=== PATIENT | female | born 1960 | race Caucasian/White ===

== ENCOUNTER 2018-04-24 06:12 | Observation (INO) | payer OTHER ==
--- NOTE | 2018-04-24 07:26 | PDOC ---
History of Present Illness - General Chief Complaint: Vaginal Sxs Stated Complaint: VAGINAL PROBLEM/RASH Time Seen by Provider: 04/24/18 07:24 History Source: Patient, Old Records Exam Limitations: No Limitations - History of Present Illness Initial Comments: HPI: 57 y/o female presenting to [facility] ER complaining of painful rash to groin. First noted the rash on Thursday and reports that it was progressively worsening by spreading further from the midline. Possible associated singular lesion on upper left quadrant of abdomen but pt admits she is unable to recall if the lesion appeared at the same time. Denies weeping or purulent discharge. Denies urinary symptoms. Pt was evaluated by OBGYN Dr. Bolivar yesterday. Blood was drawn but has not resulted. Doctor admitted she was unsure of the etiology of the lesion. Pt presents here today for further evaluation. Denies fevers, chills , or recent illness. No history of similar. Denies new detergent, soap, or clothing. No other member of household has similar lesions. PCP: Dr. Ramirez Choudhary Hx: - Pt reports she is not sexually active. Medical Hx: - HLD, managed with statin. Surgical Hx: - Pt denies Past History - Past Medical History Allergies/Adverse Reactions: Allergies Allergy/AdvReac Type Severity Reaction Status Date / Time vancomycin Allergy Intermediate Itching Verified 04/24/18 10:42 Home Medications: Ambulatory Orders Unobtainable 04/24/18 COPD: No - Reproductive History Is Patient Now?: No Therapeutic (s) & number: No - Immunization History Immunization Up to Date: Yes - Suicide/Smoking/Psychosocial Hx Smoking History: Never smoked Have you smoked in the past 12 months: No Information on smoking cessation initiated: No Hx Alcohol Use: No Drug/Substance Use Hx: No Review of Systems - Review of Systems Able to Perform ROS?: Yes Comments:: In addition to that documented in the HPI above, the additional ROS was obtained : Constitutional: Denies fevers or chills Eyes: Denies vision changes ENMT: Denies sore throat CV: Denies chest pain Resp: Denies SOB GI: Denies vomiting or diarrhea : Denies painful urination MSK: Denies recent trauma Skin: Per HPI Neuro: Denies new numbness or tingling or weakness Endocrine: Denies polyuria Heme: Denies bleeding or bruising *Physical Exam - Vital Signs Last Vital Signs Temp Pulse Resp BP Pulse Ox 98.6 F 88 20 141/90 99 04/24/18 06:20 04/24/18 06:20 04/24/18 06:20 04/24/18 06:20 04/24/18 06:20 - Physical Exam Comments: Constitutional: Well-developed, well-nourished female in no acute distress or obvious discomfort. Found sitting upright on PUBLICITY DIRECTOR table. Alert and oriented x4. Answered all questions appropriately and completely. Speech was non-labored, non -pressured. Head: Normocephalic. No obvious external signs of trauma. Eyes: Sclerae white. Conjunctiva moist and not injected. EARS: Hearing grossly intact. NOSE: No nasal discharge. Neck: Supple, trachea is midline. Cardiovascular: Regular rate and regular rhythm. No murmur, rubs, clicks, or gallops. Peripheral pulses: Radial pulses full. Respiratory: Breathing unlabored. Equal chest rise and fall. Clear to auscultation bilaterally. No stridor, no wheezing, no rhonchi. Neuro: Alert and oriented. Moving all four extremities spontaneously. Skin: Vesicular rash with erythematous base to right labia majority extending over L1 and L2 dermatomes, but does not cross the midline. Singular, non- vesicular, erythematous lesion to LUQ. Psych: Affect: appropriate. Mood: normal. Female Pelvic: Speculum exam with normal appearing whitish vaginal discharge. Vaginal wall mucosa is unremarkable. Cervix visualized and is unremarkable ( closed in appearance without any protruding material). RN chaperoned exam. Moderate Sedation - Procedure Monitoring Vital Signs: Procedure Monitoring Vital Signs Temperature 98.6 F 04/24/18 06:20 Pulse Rate 88 04/24/18 06:20 Respiratory Rate 20 04/24/18 06:20 Blood Pressure 141/90 04/24/18 06:20 O2 Sat by Pulse Oximetry (%) 99 04/24/18 06:20 ED Treatment Course - LABORATORY CBC & Chemistry Diagram: 04/24/18 08:20 04/24/18 08:20 Medical Decision Making - Medical Decision Making *Reviewed vital signs, nursing notes, and prior visit documentation (if available). 57 y/o female complaining of worsening vesicular rash to right side of labia majora, which extends over L1 and L2 dermatomes. Does not cross the midline. Concern for disseminated herpes zoster given multiple dermatomes and rapid progression of symptoms. Low suspicion for brooklyn's gangrene given location and otherwise unremarkable vitals. Low suspicion for cellulitis but will start broadspectrum Vancomycin and Zosyn. Afebrile. CBC unremarkable for leukocytosis. Pt placed on airborne precaution. Ordered acyclovir. Will admit for IV medication. UA unremarkable for pyuria, nitrite, or leukocyte esterase. HSV PCR pending. 09:23 Dr. Delgado is covering for Dr. Guzmán. Telephone message left on Dr. Hall voice main ([phone]). Also telephone page sent for Dr. Delgado through Dr. Guzmán office staff. 10:54 Total of three pages have been sent for Dr. Delgado without receiving call back. Microblog sent to [facility] for admission. 11:31 ED Attending consulted with inpatient medicine resident for admission. Will accept pt to med/surg for Dr. Montes. Requested ID consultation. 11:41 Telephone page sent for Dr. Bolivar with answering service. Awaiting call back. 12:[address] Snyder. Verbally appraised of the pts HPI, ED course, and current plan of management. Will evaluate the pt today. *DC/Admit/Observation/Transfer Diagnosis at time of Disposition: Vesicular eruption of skin - Discharge Dispostion Condition at time of disposition: Stable Decision to Admit order: Yes - Referrals - Patient Instructions - Post Discharge Activity
[2018-04-24] MEDS ORDERED: ACYCLOVIR 500 MG (50MG/ML) VIAL IVPUSH ONE (07:58)
[2018-04-24] MEDS ORDERED: VANCOMYCIN 1,500 MG in DEXTROSE 5%-WATER - 500 ML IVPB ONE (08:01)
[2018-04-24] MEDS ORDERED: PIPERACILLIN/TAZOB 3.375 GM 3.375 GM in DEXTROSE 5%-WATER - 50 ML IVPB ONE (08:04)
--- NOTE | 2018-04-24 08:12 | PDOC ---
Attending Attestation - Medical Decision Making 04/24/18 10:30 3 calls made to contact PCP, Javon Cotton (Dr. Danny mendez), with no call back. Admission sent to Hospitalists Documentation prepared by Jaguar Ceja, acting as medical instrument cable fabricator for Carlos Thurston MD. <Jaguar Ceja - Last Filed: 04/24/18 10:30> - Resident Resident Name: Joo Simmons - ED Attending Attestation I have performed the following: I have examined & evaluated the patient, The case was reviewed & discussed with the resident, I agree w/resident's findings & plan, Exceptions are as noted - HPI HPI: 04/24/18 08:06 57 year old female c/ pmh HLD p/w R labial rash x 3 days. Has had a history of shingles. Noticed 3 days ago that she had a mild redness that had progressively worsened the last 3 days. Saw DESIGNER yesterday morning by Dr. Bolivar. Was started on a topical ointment, which she does not remember. States does not help. States it is painful to touch, but no fevers. Extends along the R side of labia majora and along proximal right thigh. Noted that there may have been a "spot"developed on R side abdomen and left arm. No fevers, chills. - Physicial Exam PE: 04/24/18 08:18 GENERAL: Awake, alert, and fully oriented, in no acute distress HEAD: No signs of trauma EYES: EOMI, sclera anicteric, conjunctiva clear ENT: Auricles normal inspection, hearing grossly normal, nares patent NECK: Normal ROM, supple GAGE DESIGNER: Internal exam with no CMT, drainage. External exam demonstrates vesicular lesions along the L1 and L2 dermatomal pattern on the right with surrounding satellite lesions. Tender to palpation. EXTREMITIES: Normal range of motion, no edema. No clubbing or cyanosis. No cords, erythema, or tenderness NEUROLOGICAL: Cranial nerves II through XII grossly intact. Normal speech, normal gait SKIN: Warm, Dry, normal turgor, no rashes or lesions noted. - Medical Decision Making 04/24/18 08:25 Vital Signs Temp Pulse Resp BP Pulse Ox 98.6 F 88 20 141/90 99 04/24/18 06:20 04/24/18 06:20 04/24/18 06:20 04/24/18 06:20 04/24/18 06:20 I suspect that this is shingles. It is limited along the right side of the midline, however, there is some concerns that it crosses L1 and L2 dermatomal pattern, concerning for diseeminated shingles. However, given the erythema, will treat as cellulitis as well. That being said, I do not suspect brooklyn's gangrene at the moment. This has been a gradually increasing rash with no crepitus. Will initiate IV acyclovir, vanc and zosyn. Order cultures. Patient should be admitted with ID consultation. 04/24/18 09:19 CBC, BMP 04/24/18 08:20 04/24/18 08:20 CMP Sodium 138 mmol/L (136-145) 04/24/18 08:20 Potassium 4.0 mmol/L (3.5-5.1) 04/24/18 08:20 Chloride 103 mmol/L (98-107) 04/24/18 08:20 Carbon Dioxide 26 mmol/L (21-32) 04/24/18 08:20 Anion Gap 9 MMOL/L (8-16) 04/24/18 08:20 BUN 6 mg/dL (7-18) L 04/24/18 08:20 Creatinine 0.6 mg/dL (0.55-1.3) 04/24/18 08:20 Creat Clearance w eGFR > 60 (>60) 04/24/18 08:20 Random Glucose 86 mg/dL (74-106) 04/24/18 08:20 Lactic Acid 1.8 mmol/L (0.4-2.0) 04/24/18 08:20 Calcium 9.2 mg/dL (8.5-10.1) 04/24/18 08:20 Total Bilirubin 0.4 mg/dL (0.2-1) 04/24/18 08:20 AST 31 U/L (15-37) 04/24/18 08:20 ALT 42 U/L (13-61) 04/24/18 08:20 Alkaline Phosphatase 139 U/L (45-117) H 04/24/18 08:20 Troponin I < 0.02 ng/ml (0.00-0.05) 04/24/18 08:20 Total Protein 7.9 g/dl (6.4-8.2) 04/24/18 08:20 Albumin 4.3 g/dl (3.4-5.0) 04/24/18 08:20 04/24/18 10:31 Pt is having urticaria with vancomycin. Vancomycin stopped. IV benadryl ordered. Will list vancomycin as an allergic reaction. 04/24/18 11:29 Attempted to admit to Dr. Delgado for Dr. Guzmán. However, left a voicemail. Pg sented to [facility]. Pt admitted to [facility]. Will consult Dr. Snyder and Dr. Bolivar. 04/24/18 11:[address] Bolivar. She is aware of case and will stop by and see patients. <Carlos Thurston - Last Filed: 04/24/18 11:50> Heart Score/ECG Review #1 ECG reviewed & interpreted by me at: 09:55 04/24/18 09:58 NSR 67, low voltage QRS, no std/francesca, QTC 448 msec <Carlos Thurston - Last Filed: 04/24/18 11:50>
[2018-04-24] MEDS ORDERED: PIPERACILLIN/TAZOB 3.375 GM 3.375 GM/50 ML BAG IVPB ONE (08:40)
[2018-04-24 08:43] LABS: BASO % 0.5 % (0-2.0); EOS % 1.7 % (0-4.5); HEMATOCRIT 42.2 % (32.4-45.2); HEMOGLOBIN 14.9 GM/dL (10.7-15.3); LYMPH % 18.7 % (8-40); MCHC 35.3 g/dl (32.0-36.0); MEAN CELL VOLUME 93.5 fl (80-96); MEAN PLT VOLUME 6.5 fl (7.5-11.1); MONO % 8.1 % (3.8-10.2); PLATELET COUNT 218 K/MM3 (134-434); RBC 4.51 M/mm3 (3.60-5.2); WHITE BLOOD COUNT 4.3 K/mm3 (4.0-10.0)
[2018-04-24] MEDS ORDERED: ACETAMINOPHEN 1000 MG/100 ML VIAL (NON FORMULARY) IVPB ONE (08:52)
[2018-04-24] MEDS ORDERED: ACETAMINOPHEN INJECTION 100 ML IVPB ONE (08:52)
[2018-04-24 09:06] LABS: INR 0.97 (0.83-1.09); PROTHROMBIN TIME (PATIENT) 11.4 SEC (9.7-13.0)
[2018-04-24 09:08] LABS: ACTIVATED PTT 31.6 SECONDS (25.2-36.5)
[2018-04-24 09:14] LABS: ALBUMIN 4.3 g/dl (3.4-5.0); ALK PHOS 139 U/L (45-117); ANION GAP 9 MMOL/L (8-16); BILIRUBIN,TOTAL 0.4 mg/dL (0.2-1); BLOOD UREA NITROGEN 6 mg/dL (7-18); CALCIUM 9.2 mg/dL (8.5-10.1); CHLORIDE 103 mmol/L (98-107); CO2 26 mmol/L (21-32); CREATININE 0.6 mg/dL (0.55-1.3); GLUCOSE,RANDOM 86 mg/dL (74-106); SGOT/AST 31 U/L (15-37); SGPT/ALT 42 U/L (13-61); SODIUM 138 mmol/L (136-145); TOT PROT 7.9 g/dl (6.4-8.2)
[2018-04-24 09:20] LABS: URINE APPEARANCE CLEAR; URINE BILIRUBIN NEGATIVE (<2.0 mg/dL); URINE COLOR LTYELLOW; URINE GLUCOSE (UA) NEGATIVE (NEGATIVE); URINE KETONE NEGATIVE (NEGATIVE); URINE LEUK ESTERASE NEGATIVE (NEGATIVE); URINE NITRITE NEGATIVE (NEGATIVE); URINE PROTEIN NEGATIVE (NEGATIVE); URINE UROBILINOGEN NEGATIVE mg/dL (0.2-1.0)
--- NOTE | 2018-04-24 12:27 | HP ---
CHIEF COMPLAINT: rash in groin PCP: Dr. Ramirez Izaguirre HISTORY OF PRESENT ILLNESS: Pt is a 57 y/o F with hx shingles 4 years ago who presented to ED with complaint of worsening rash of the vulva. Pt states she went to see her DAMAGE CUTTER, Dr. Izaguirre yesterday, but no diagnosis was made at that time. Pt was given some kind of creme, but she cannot recall what it was. Pt states her symptoms began on Thu and have been worsening since then, prompting her to come to ED. She states she noticed some discomfort and tingling-type pain on Thu or , but she didn't look at the area until Thu when she noted the rash. It is unclear if the rash was present when her symptoms began. Pt noticed isolated lesions on her body on the left flank, R chest, and the top of her head. She states that these red spangler initially appeared as dots and developed a halo later. Pt denies any other symptoms. No urinary discomfort, urgency, frequency, no nausea, no vomiting. Denies fever, malaise, travel, sick contacts. ER course was notable for: (1) Acyclovir, ofirmev, vancomycin (? barrie syndrome), zosyn (2) (3) Recent Travel: denies PAST MEDICAL HISTORY: HLD, shingles of R arm 4 years ago PAST SURGICAL HISTORY: Basal cell resection of R forehead Social History: Smokin ppd, quit 30 years ago Alcohol: 4 glasses wine nightly, counselled Drugs: denies Family History: Father heart disease, grand mother breast [place] Allergies vancomycin Allergy (Intermediate, Verified 04/24/18 10:42) Itching HOME MEDICATIONS: Home Medications Medication Instructions Recorded Unobtainable 04/24/18 REVIEW OF SYSTEMS CONSTITUTIONAL: Absent: fever, chills, diaphoresis, generalized weakness, malaise, loss of appetite, weight change HEENT: Absent: rhinorrhea, nasal congestion, throat pain, throat swelling, difficulty swallowing, mouth swelling, ear pain, eye pain, visual changes CARDIOVASCULAR: Absent: chest pain, syncope, palpitations, irregular heart rate, lightheadedness , peripheral edema RESPIRATORY: Absent: cough, shortness of breath, dyspnea with exertion, orthopnea, wheezing, stridor, hemoptysis GASTROINTESTINAL: Absent: abdominal pain, abdominal distension, nausea, vomiting, diarrhea, constipation, melena, hematochezia GENITOURINARY: genital pain Absent: dysuria, frequency, urgency, hesitancy, hematuria, flank pain, MUSCULOSKELETAL: Absent: myalgia, arthralgia, joint swelling, back pain, neck pain SKIN: Absent: rash, itching, pallor HEMATOLOGIC/IMMUNOLOGIC: Absent: easy bleeding, easy bruising, lymphadenopathy, frequent infections ENDOCRINE: Absent: unexplained weight gain, unexplained weight loss, heat intolerance, cold intolerance NEUROLOGIC: Absent: headache, focal weakness or paresthesias, dizziness, unsteady gait, seizure, mental status changes, bladder or bowel incontinence PSYCHIATRIC: Absent: anxiety, depression, suicidal or homicidal ideation, hallucinations. PHYSICAL EXAMINATION Vital Signs - 24 hr 04/24/18 04/24/18 06:20 11:04 Temperature 98.6 F 97.8 F Pulse Rate 88 Pulse Rate [ 77 Left Radial] Respiratory 20 18 Rate Blood Pressure 141/90 Blood Pressure 102/60 [Right Arm] O2 Sat by Pulse 99 97 Oximetry (%) Gen: NAD, AAO x3 HEENT: NCAT, EOMI, PERRL Neck: supple, no jvd Cardio: RRR, normal s1s2, no mrg Pulm: CTA b/l Abd: soft nontender, normal BS, no guarding Ext: no edema, 2+ pulses Skin: Rash present. Primarily of the right vulva, including labia majora and minora and extending anteriorly to the inferior abdomen and posteriorly to the Right buttock where it is more sparse. Rash is semi-confluent, erythematous with small areas of possible vesicles amisha of the labia. Pt also has isolated punctate lesions elsewhere on her body: L superior abdomen, R anterior axilla, nuchal line of the neck, crown of the head. These lesions have central scabbing with surrounding halo. Rash is mildly tender to palpation Laboratory Results - last 24 hr 04/24/18 04/24/18 04/24/18 08:20 08:20 08:20 WBC 4.3 RBC 4.51 Hgb 14.9 Hct 42.2 MCV 93.5 MCH 33.0 MCHC 35.3 RDW 13.0 Plt Count 218 MPV 6.5 L Absolute Neuts (auto) 3.0 Neutrophils % 71.0 Lymphocytes % 18.7 Monocytes % 8.1 Eosinophils % 1.7 Basophils % 0.5 Nucleated RBC % 0 PT with INR INR PTT (Actin FS) Sodium 138 Potassium 4.0 Chloride 103 Carbon Dioxide 26 Anion Gap 9 BUN 6 L Creatinine 0.6 Creat Clearance w eGFR > 60 Random Glucose 86 Lactic Acid 1.8 Calcium 9.2 Total Bilirubin 0.4 AST 31 ALT 42 Alkaline Phosphatase 139 H Troponin I < 0.02 Total Protein 7.9 Albumin 4.3 Urine Color Urine Appearance Urine pH Ur Specific Jupiter Urine Protein Urine Glucose (UA) Urine Ketones Urine Blood Urine Nitrite Urine Bilirubin Urine Urobilinogen Ur Leukocyte Esterase 04/24/18 04/24/18 08:20 09:00 WBC RBC Hgb Hct MCV MCH MCHC RDW Plt Count MPV Absolute Neuts (auto) Neutrophils % Lymphocytes % Monocytes % Eosinophils % Basophils % Nucleated RBC % PT with INR 11.40 INR 0.97 PTT (Actin FS) 31.6 Sodium Potassium Chloride Carbon Dioxide Anion Gap BUN Creatinine Creat Clearance w eGFR Random Glucose Lactic Acid Calcium Total Bilirubin AST ALT Alkaline Phosphatase Troponin I Total Protein Albumin Urine Color Ltyellow Urine Appearance Clear Urine pH 7.0 Ur Specific Jupiter 1.008 L Urine Protein Negative Urine Glucose (UA) Negative Urine Ketones Negative Urine Blood Negative Urine Nitrite Negative Urine Bilirubin Negative Urine Urobilinogen Negative Ur Leukocyte Esterase Negative ASSESSMENT/PLAN: Pt is a pleasant 57 y/o F with PMH shingles of the RUE 4 years ago who presented to ED with rash in her groin. #Rash -unclear etiology -possibly shingles, though presentation is not completely consistent. Lesions were uncomfortable and tender, but not exquisitely painful. Rash does not appear to be frankly vesicular. -ID consulted. Input appreciated -Dr. Izaguirre to see pt -will check A1C -holding abx at this time. Does not appear to be cellulitic #HLD -c/w home statin #FEN -not on fluids -lytes wnl -reg diet Jimmy Jamison MD PGY-2 IM Visit type - Emergency Visit Emergency Visit: Yes ED Registration Date: 04/24/18 Care time: The patient presented to the Emergency Department on the above date and was hospitalized for further evaluation of their emergent condition. - New Patient This patient is new to me today: Yes Date on this admission: 04/24/18 - Critical Care Critical Care patient: No
[2018-04-24] MEDS ORDERED: HEPARIN NA (PORCINE) 5,000 UNITS/ML 1ML VIAL ONE (14:14)
[2018-04-24] MEDS: HEPARIN NA (PORCINE) 5,000 UNITS/ML 1ML VIAL SQ SCH ×2 (14:19→18:34)
--- NOTE | 2018-04-24 14:57 | PN ---
Teaching Attending Note Name of Resident: Jimmy Jamison ATTENDING PHYSICIAN STATEMENT I saw and evaluated the patient. I reviewed the resident's note and discussed the case with the resident. I agree with the resident's findings and plan as documented. SUBJECTIVE: CC: Rash HPI: Pt seen and examined with Dr. Jamison. liliya 57 y/o lady with h/o hyperlipidemia , and Herpes zoster, who presented with rash in her genital area. patient started feeling some discomfort in her genital area on Thursday, but on Thursday she looked as the discomfort became pain, and found the rash. she saw her BUSINESS PARTNER, Dr. Bolivar, who gave her 2 creams to apply. pain feels like burning and ache. denies any fever or chills. denies any drainage form rash or any vaginal discharge. she is sexually active with her . ponce snot use protection . no h/o STDs. she noticed a lesion on her R lateral chest , but that was not painful. 10 days ago, she had an ulcer in her mouth , under her tongue and dr. Coto , gave her a cream for it . Now resolved 4 years ago, she was in contact with some one with Shingles and she got it in her RUE. In ER, received vanco and developed itching. OBJECTIVE: NAD, pleasant and cooperative . round equal pupils, reactive to light . no facial droop. MMM, no ulcers, nl oropharynx CV: RRR, no MRG lungs: CTAB. Abd: soft, NT, ND , NL BS. Lymphatic system: No LAP in groins or R axilla. 1cm lymph node in L axilla, mobile under skin and on deep tissue. Breasts: symmetric, no skin lesions, Nl nipples. no discharge. no nodules or lumps. : Nl hair distribution. macular , papular rash with on R labia majora, labia minora, pubic area, and medial side of R gluteal area. some vesicles seen on R labia minora and suprapubic area. skin: in addition to what's seen on , there is an macular area on R upper chest , and L flank with centrally raised area. papular lesionon R posterior neck. and 2 lesions on scalp. one of them with a scab. No lesions on palms and soles or Mucus membranes ASSESSMENT AND PLAN: Pt seen and examined with Dr. Jamison. pleasant 57 y/o lady with h/o hyperlipidemia , and Herpes zoster, who presented with rash in her genital area. 1- Rash: unclear etiology. no specific distribution. it is certainly vesicular in certain areas. ? herpes simples , vs Herpes zoster , Vs other viral rash. ? fungal rash. - will not provide any specific treatment at this point as diagnoses is not clear. - will ask ID help. - if needed will ask derm help - BUSINESS PARTNER was called already by ER. - HSV PCR was sent ( plasma ) . - will see if can send a swab from obe of the vesicles for HSV 3- HLP: cont her statin. DVT PX : heparin
--- NOTE | 2018-04-24 16:41 | PN ---
Progress Note (short form) - Note Progress Note: ID consult dictated imp/reccd 57 yo otherwise healthy woman admitted with 3 day history of worsening painful rash on right buttock and labia no fever no headache no difficulty urinating monagamous but sexually active for several months ?HIV status clinically c/w zoster (all unilateral) few scattered lesions - chest neck abd wall as well ivf/iv acyclovir 10 mg/kg isolation send viral culture serology for hsv sent HIV testing if patient is agreeable d/w hospitalist Problem List - Problems (1) Zoster Code(s): B02.9 - ZOSTER WITHOUT COMPLICATIONS
[2018-04-24 16:54] VITALS: BMI 24.7
[2018-04-24] MEDS ORDERED: oxyCODONE/APAP 1 EACH - MUST ORDER COMBO PRODUCT NR PRN ×2 (17:16→17:54)
[2018-04-24] MEDS ORDERED: DOCUSATE SODIUM 100 MG CAPSULE (FP) PO PRN (17:16)
--- NOTE | 2018-04-24 17:21 | CONS ---
DATE OF CONSULTATION: DATE OF DICTATION: 04/24/2018 HISTORY: This 57-year-old woman presents to the emergency room with rash that she says began on Thursday. She saw her landscape painter yesterday and was prescribed a cream. It has been getting worse. She recalls that it is burning and uncomfortable. The rash is confined to her right vulvar area, and she says as well scattered lesions on her buttocks. She has no fevers or chills. She has no headaches. She has had no travel or sick contacts. She is . She lives at home with her . She is monogamous but has not had sexually active for several months. She has a history of zoster 4 years ago. She has hyperlipidemia and takes simvastatin. She does not take any other medicines. PAST SURGICAL HISTORY: She has had basal cell carcinoma. As well she has rosacea. She has had multiple skin biopsies. ALLERGIES: In the ER, she was given acyclovir, vancomycin, and Zosyn. She developed erythema and itching to the VANCOMYCIN. It was stopped. She was given Benadryl. SOCIAL HISTORY: She is . 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 She quit smoking 30 years ago. She drinks wine nightly. There is no history of substance use. FAMILY HISTORY: Notable for heart disease and breast cancer. REVIEW OF SYSTEMS: There is no dysuria. She has no headaches. She does note that the rash is very uncomfortable and burning. PHYSICAL EXAMINATION: General: She is awake and alert. Vital Signs: T-max of 99, temperature 98.3, pulse 84, blood pressure 121/71, respiratory rate 18, saturating 98% on room air. HEENT: She is normocephalic. Her eyes are anicteric. Neck: Supple. Lungs: Clear to auscultation. Heart: Regular rate and rhythm. Abdomen: Soft and nontender. Extremities: Without edema. Skin: A skin rash is notable for a vesicular rash on her right vulva. As well, she has scattered lesions on her right buttocks extending from the midline. She has a few lesions scattered in her suprapubic area. She has 1 on her anterior abdomen, one side of her neck. Mainly the rash is vesicular. DIAGNOSTIC DATA: White count 4.3, hemoglobin 14.9, platelets 218. Chemistries are normal except for an alkaline phosphatase of 139. Urinalysis is negative. Cultures are pending. In summary, this is a 57-year-old woman with painful rash that is vesicular mainly unilateral consistent with zoster. I would send a viral culture by unroofing one of the lesions. Would place her on isolation. Treat her with IV fluids and IV acyclovir at this point. Would obtain HIV testing if the patient is agreeable. Send serology for HSV as well. She has a history of zoster in the past, so there is no need to send varicella serology. This was discussed with the hospitalist. AMBROCIO PHILIPPE M.D. [id number]
[2018-04-24] MEDS ORDERED: ACETAMINOPHEN 325 MG TABLET (FP) PO PRN (17:56)
[2018-04-24] MEDS: oxyCODONE HCL 5 MG TABLET PO PRN (18:32)
[2018-04-24] MEDS: SODIUM CHLORIDE 1,000 ML IV SCH (18:32)
[2018-04-24] MEDS: ACYCLOVIR INJECTION 600 MG in DEXTROSE 5%-WATER - 100 ML IVPB SCH (18:33)
[2018-04-24] MEDS: ATORVASTATIN CA 10 MG TABLET (FP) PO SCH (21:35)
[2018-04-25] MEDS: ACYCLOVIR INJECTION 600 MG in DEXTROSE 5%-WATER - 100 ML IVPB SCH ×3 (01:16→17:00)
[2018-04-25] MEDS: HEPARIN NA (PORCINE) 5,000 UNITS/ML 1ML VIAL SQ SCH ×3 (05:57→21:47)
--- NOTE | 2018-04-25 08:43 | EKG ---
Test Reason : Blood Pressure : / mmHG Vent. Rate : 067 BPM Atrial Rate : 067 BPM P-R Int : 140 ms QRS Dur : 092 ms QT Int : 424 ms P-R-T Axes : 052 009 049 degrees QTc Int : 448 ms NORMAL SINUS RHYTHM LOW VOLTAGE QRS BORDERLINE ECG WHEN COMPARED WITH ECG OF 06-FEB-2011 15:37, T WAVE AMPLITUDE HAS DECREASED IN ANTERIOR LEADS Confirmed by PETER BENZ, TING ([id number]) on 04/25/2018 8:42:39 AM Referred By: Confirmed By:TING GREEN MD
[2018-04-25] MEDS ORDERED: PT OWN MED DRAWER 7, Y5N ONE ×2 (09:00→16:54)
[2018-04-25 09:37] LABS: BASO % 0.5 % (0-2.0); EOS % 1.2 % (0-4.5); HEMATOCRIT 37.3 % (32.4-45.2); HEMOGLOBIN 13.2 GM/dL (10.7-15.3); LYMPH % 30.3 % (8-40); MCH 33.2 pg (25.7-33.7); MCHC 35.5 g/dl (32.0-36.0); MEAN CELL VOLUME 93.5 fl (80-96); MEAN PLT VOLUME 6.9 fl (7.5-11.1); MONO % 15.4 % (3.8-10.2); NEUT % 52.6 % (42.8-82.8); PLATELET COUNT 198 K/MM3 (134-434); RBC 3.99 M/mm3 (3.60-5.2); WHITE BLOOD COUNT 4.4 K/mm3 (4.0-10.0)
[2018-04-25 10:25] LABS: ANION GAP 9 MMOL/L (8-16); BLOOD UREA NITROGEN 9 mg/dL (7-18); CALCIUM 8.5 mg/dL (8.5-10.1); CHLORIDE 106 mmol/L (98-107); CO2 25 mmol/L (21-32); CREATININE 0.7 mg/dL (0.55-1.3); GLUCOSE,RANDOM 87 mg/dL (74-106); POTASSIUM 3.6 mmol/L (3.5-5.1); SODIUM 140 mmol/L (136-145)
--- NOTE | 2018-04-25 11:03 | PN ---
Progress Note (short form) - Note Progress Note: feels better Vital Signs Period Temp Pulse Resp BP Sys/Rebolledo Pulse Ox Last 24 Hr 97.8 F-99.1 F 73-84 18-18 102-121/60-74 97-99 cor-rrr lungs clear abd soft,nt ext vesicular rash unchanged CBC, BMP 04/25/18 08:30 04/25/18 08:30 Microbiology 04/24/18 09:00 Urine - Urine Clean Catch Urine Culture - Final NO GROWTH OBTAINED 04/24/18 07:40 Blood - Peripheral Venous Blood Culture - Preliminary NO GROWTH OBTAINED AFTER 24 HOURS, INCUBATION TO CONTINUE FOR 4 DAYS. 04/24/18 08:20 Blood - Peripheral Venous Blood Culture - Preliminary NO GROWTH OBTAINED AFTER 24 HOURS, INCUBATION TO CONTINUE FOR 4 DAYS. a/p clinically c/w zoster (all unilateral) few scattered lesions - chest neck abd wall as well ivf/iv acyclovir 10 mg/kg day #2 isolation send viral culture serology for hsv sent HIV testing patient is agreeable,will order for am d/w foreign banknote teller trader Problem List - Problems (1) Zoster Code(s): B02.9 - ZOSTER WITHOUT COMPLICATIONS
--- NOTE | 2018-04-25 11:12 | CON.OBG ---
Consult Consult Specialty:: Gynecology Reason for Consultation:: Vulvar rash/pain. Herpes - History of Present Illness Chief Complaint: vulvar pain and rash History of Present Illness: 57 yo seen by myself in the office on Thursday due to vulvar rash and vulvar pain. Pt symptoms got worse after visit and came to ER HSV & STD culture done in office - History Source History Provided By: Patient Limitations to Obtaining History: No Limitations - Past Medical History Reproductive: Yes: Other (Hx of ZOster) ...: No Infectious Disease: Yes: Herpes Zoster - Past Surgical History Past Surgical History: Yes: None - Alcohol/Substance Use Hx Alcohol Use: No History of Substance Use: reports: None - Smoking History Smoking history: Never smoked Have you smoked in the past 12 months: No If you are a former smoker, when did you quit?: 30 years ago - Social History History of Recent Travel: No Home Medications - Allergies Allergies/Adverse Reactions: Allergies Allergy/AdvReac Type Severity Reaction Status Date / Time vancomycin Allergy Intermediate Itching Verified 04/24/18 10:42 - Home Medications Home Medications: Ambulatory Orders Simvastatin 10 mg PO HS 04/24/18 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 Vital Signs: Vital Signs Temperature 97.7 F 04/25/18 10:00 Pulse Rate 75 04/25/18 10:00 Respiratory Rate 18 04/25/18 10:00 Blood Pressure 116/73 04/25/18 10:00 O2 Sat by Pulse Oximetry (%) 98 04/25/18 10:00 Constitutional: Yes: Well Nourished, Calm Gastrointestinal: Yes: WNL, Soft External Genitalia: Yes: Herpes, Vulvitis, Other (rash herpes zoster) Internal Exam Deferred: Yes Musculoskeletal: Yes: WNL Extremities: Yes: WNL Edema: No Labs: CBC, BMP 04/25/18 08:30 04/25/18 08:30 Problem List - Problems (1) Vesicular eruption of skin Code(s): R23.8 - OTHER SKIN CHANGES (2) Zoster Code(s): B02.9 - ZOSTER WITHOUT COMPLICATIONS Qualifiers: Herpes zoster complications: disseminated zoster Qualified Code(s): B02.7 - Disseminated zoster Assessment/Plan Herpes Zoster - discussed with ID DC home possible tomorrow Plan Continue IV Acyclovir
--- NOTE | 2018-04-25 12:19 | PN ---
Progress Note, Physician Chief Complaint: No new complaints still c/o vuilvur irritation and discomfort, remained afebrile. History of Present Illness: 57yrs old F admitted rom [employer] office for vaginal irritation and discomfort diagnosed, HZ evaluated by [employer] and ID - Current Medication List Current Medications: Active Medications Acetaminophen (Tylenol -) 325 mg PO Q4H PRN PRN Reason: PRN PAIN SCALE 5-10 Stop: 04/27/18 17:55 Atorvastatin Calcium (Lipitor -) 10 mg PO HS [facility] Last Admin: 04/24/18 21:35 Dose: 10 mg Docusate Sodium (Colace -) 100 mg PO BID PRN PRN Reason: CONSTIPATION Heparin Sodium (Porcine) (Heparin -) 5,000 unit SQ TID [facility] Last Admin: 04/25/18 05:57 Dose: 5,000 unit Acyclovir 600 mg/ Dextrose 112 mls @ 112 mls/hr IVPB Q8H-IV [facility] Last Admin: 04/25/18 09:57 Dose: 112 mls/hr Sodium Chloride (Normal Saline -) 1,000 mls @ 125 mls/hr IV ASDIR [facility] Last Admin: 04/24/18 18:32 Dose: 125 mls/hr Oxycodone HCl (Roxicodone -) 5 mg PO Q4H PRN PRN Reason: PRN PAIN SCALE 5-10 Last Admin: 04/24/18 18:32 Dose: 5 mg - Objective Vital Signs: Vital Signs Temperature 97.7 F 04/25/18 10:00 Pulse Rate 75 04/25/18 10:00 Respiratory Rate 18 04/25/18 10:00 Blood Pressure 116/73 04/25/18 10:00 O2 Sat by Pulse Oximetry (%) 98 04/25/18 10:00 Middle aged F not in distress HEENT: Mm moist, no anemia, PERRLA, EOMI NECK: No JVD No Bruit CHEST: CTA B/L CVS: S1S2 R ABD: No distention non tender PELVIC EXam; As per [employer]: Vesicular rash labia majora and minora and extending anteriorly to the inferior abdomen and posteriorly to the Right buttock where it is more sparse. Rash is semi-confluent, erythematous with small areas of possible vesicles amisha of the labia. 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
[2018-04-25] MEDS: ATORVASTATIN CA 10 MG TABLET (FP) PO SCH (21:47)
[2018-04-25] MEDS: SODIUM CHLORIDE 1,000 ML IV SCH (21:50)
[2018-04-25] MEDS: oxyCODONE HCL 5 MG TABLET PO PRN (21:57)
[2018-04-26] MEDS: ACYCLOVIR INJECTION 600 MG in DEXTROSE 5%-WATER - 100 ML IVPB SCH ×3 (01:30→18:13)
[2018-04-26] MEDS: SODIUM CHLORIDE 1,000 ML IV SCH ×3 (05:16→21:31)
[2018-04-26] MEDS: HEPARIN NA (PORCINE) 5,000 UNITS/ML 1ML VIAL SQ SCH ×3 (05:54→21:31)
[2018-04-26 07:40] LABS: BASO % 0.7 % (0-2.0); EOS % 2.7 % (0-4.5); HEMATOCRIT 37.6 % (32.4-45.2); HEMOGLOBIN 12.1 GM/dL (10.7-15.3); LYMPH % 44.2 % (8-40); MCH 30.6 pg (25.7-33.7); MCHC 32.3 g/dl (32.0-36.0); MEAN PLT VOLUME 6.9 fl (7.5-11.1); MONO % 14.1 % (3.8-10.2); NEUT % 38.3 % (42.8-82.8); PLATELET COUNT 162 K/MM3 (134-434); RBC 3.96 M/mm3 (3.60-5.2); RDW 12.9 % (11.6-15.6); WHITE BLOOD COUNT 3.9 K/mm3 (4.0-10.0)
[2018-04-26 08:30] LABS: ANION GAP 6 MMOL/L (8-16); BLOOD UREA NITROGEN 8 mg/dL (7-18); CALCIUM 8.4 mg/dL (8.5-10.1); CHLORIDE 108 mmol/L (98-107); CO2 28 mmol/L (21-32); CREATININE 0.6 mg/dL (0.55-1.3); GLUCOSE,RANDOM 90 mg/dL (74-106); POTASSIUM 3.8 mmol/L (3.5-5.1); SODIUM 143 mmol/L (136-145)
--- NOTE | 2018-04-26 08:45 | DS ---
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 Rash is semi-confluent, erythematous with small areas of possible vesicles amisha of the labia. 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
--- NOTE | 2018-04-26 12:49 | PN ---
Progress Note (short form) - Note Progress Note: looks well Vital Signs Period Temp Pulse Resp BP Sys/Rebolledo Pulse Ox Last 24 Hr 97.5 F-98.6 F 70-78 18-20 113-151/65-76 98-98 cor-rrr lungs clear abd soft,nt ext no edema skin- labia and buttock rash drying new pustule on the forehead, drying lesion on neck and abdomen CBC, BMP 04/26/18 06:30 04/26/18 06:30 Microbiology 04/24/18 07:40 Blood - Peripheral Venous Blood Culture - Preliminary NO GROWTH OBTAINED AFTER 48 HOURS, INCUBATION TO CONTINUE FOR 3 DAYS. 04/24/18 08:20 Blood - Peripheral Venous Blood Culture - Preliminary NO GROWTH OBTAINED AFTER 48 HOURS, INCUBATION TO CONTINUE FOR 3 DAYS. 04/24/18 18:30 Vulva Viral Culture - Preliminary 04/24/18 09:00 Urine - Urine Clean Catch Urine Culture - Final NO GROWTH OBTAINED HIV negative a/p clinically c/w zoster (all unilateral) few scattered lesions - chest neck abd wall as well now face? not sure if these scattred lesions are zoster, she is clinically well ivf/iv acyclovir 10 mg/kg day #3 isolation continue ivf send viral culture serology for hsv sent would keep another 24 hurs to make sure no new lesions appear-if stable then po valtrex for 7 days Problem List - Problems (1) Zoster Code(s): B02.9 - ZOSTER WITHOUT COMPLICATIONS Qualifiers: Herpes zoster complications: disseminated zoster Qualified Code(s): B02.7 - Disseminated zoster
[2018-04-26] MEDS ORDERED: PT OWN MED DRAWER 7, Y5N ONE (18:22)
[2018-04-26] MEDS ORDERED: INSULIN (LEVEMIR) 100 UNITS/ML UNITS SQ ONE (18:24)
[2018-04-26] MEDS ORDERED: INSULIN (NOVOLOG) ASPART 100 UNITS/ML 10ML VIAL ONE (18:24)
[2018-04-26] MEDS ORDERED: ZOLPIDEM TARTRATE 5 MG TABLET PO PRN (19:35)
[2018-04-26] MEDS: ATORVASTATIN CA 10 MG TABLET (FP) PO SCH (21:31)
[2018-04-27] MEDS: ACYCLOVIR INJECTION 600 MG in DEXTROSE 5%-WATER - 100 ML IVPB SCH ×2 (01:03→11:02)
[2018-04-27] MEDS: HEPARIN NA (PORCINE) 5,000 UNITS/ML 1ML VIAL SQ SCH ×2 (01:47→05:15)
[2018-04-27 11:32] VITALS: BP 130/78; PULSE 71; TEMP 99.2
--- NOTE | 2018-04-27 13:30 | PN ---
Progress Note (short form) - Note Progress Note: looks well Vital Signs Period Temp Pulse Resp BP Sys/Rebolledo Pulse Ox Last 24 Hr 97.9 F-99.2 F 69-88 16-20 120-140/66-82 98-98 cor-rrr llungs clear skin- lesions all dry and scabbing, no new lesions CBC, BMP 04/26/18 06:30 04/26/18 06:30 HIV negative a/p clinically c/w zoster (all unilateral) lesions drying, no new lesions for d/c home today po valtrex 1 gram tid for 7 days f/u PMD Problem List - Problems (1) Zoster Code(s): B02.9 - ZOSTER WITHOUT COMPLICATIONS Qualifiers: Herpes zoster complications: disseminated zoster Qualified Code(s): B02.7 - Disseminated zoster
== END 2018-04-27 15:13 | disposition home health service (06) ==
LOC: JER 06:12 → JERBED 10:20 → J8W 16:34
PROVIDERS: ADMIT Internal Medicine; ATTEND Internal Medicine
PROC: 3E03329 Introduction of Other Anti-infective into Peripheral Vein, Percutaneous Approach (ICD-10-PCS; principal; 2018-04-24)
PROC: 3E033NZ Introduction of Analgesics, Hypnotics, Sedatives into Peripheral Vein, Percutaneous Approach (ICD-10-PCS; 2018-04-24)
PROC: 3E0337Z Introduction of Electrolytic and Water Balance Substance into Peripheral Vein, Percutaneous Approach (ICD-10-PCS; 2018-04-24)
PROC: 3E033GC Introduction of Other Therapeutic Substance into Peripheral Vein, Percutaneous Approach (ICD-10-PCS; 2018-04-24)
PROC: 3E013GC Introduction of Other Therapeutic Substance into Subcutaneous Tissue, Percutaneous Approach (ICD-10-PCS; 2018-04-24)
DX: B02.9 Zoster without complications (principal); R23.8 Other skin changes; E78.5 Hyperlipidemia, unspecified; Z88.8 Allergy status to other drugs, medicaments and biological substances
CPT/HCPCS: 36415; 80048; 80053; 81003; 83036; 83605; 84484; 85025; 85610; 85730; 86593; 87040; 87086; 87252; 87389; 87529; 93005; 93010; 99285-25; G0378; J0131; J1644; J7030